=== PATIENT | female | born 1960 | race African-American/Black ===

== ENCOUNTER → 2023-11-06 08:10 | Outpatient (REF) | payer BC, SELFPAY | LOC: RCS 08:10 | PROVIDERS: ATTENDING PHYSICIAN Nurse Practitioner | DX: I10 Essential (primary) hypertension (principal); R06.02 Shortness of breath | CPT/HCPCS: 93017; 93350 ==

== ENCOUNTER → 2024-02-12 14:58 | Outpatient (REF) | payer BC, SELFPAY | LOC: RAD 14:58 | PROVIDERS: ATTENDING PHYSICIAN Nurse Practitioner | DX: M25.571 Pain in right ankle and joints of right foot (principal) | CPT/HCPCS: 73610; 73630 ==

== ENCOUNTER → 2024-08-11 15:29 | Outpatient (REF) | payer BC, SELFPAY | LOC: HWWDC 15:29 | PROVIDERS: ATTENDING PHYSICIAN Nurse Practitioner | DX: Z12.31 Encounter for screening mammogram for malignant neoplasm of breast (principal) | CPT/HCPCS: 77063; 77067 ==

== ENCOUNTER 2025-07-12 15:36 | Emergency (ER) | payer BC, SELFPAY ==
[2025-07-12 15:41] VITALS: BP 191/95
--- NOTE | 2025-07-12 17:09 | ED.GENMED ---
History of Present Illness
General
Chief Complaint: Musculo-Skeletal Complaint
Source: patient
Exam Limitations: none
Time Seen by Provider: 07/12/25 16:31
Nursing documentation reviewed up to this point in time: agreed with
History of Present Illness
History of Present Illness:
Patient is a 65-year-old female with history hypertension who presents to the emergency department w/ left finger injury. She states that she got her finger stuck on a hook when she was hanging her purse up at home. She has significant pain in her
left fourth finger and limited range of motion. She denies any numbness/tingling in affected finger. She took her ring off immediately following injury prior to coming to the emergency department.
No other concerns today.
Past History
Past History
ED Past Medical History: HTN and Hypercholesterolemia
Social History
Tobacco: Non-smoker
Personal:
Living: with family
Review of Systems
Review of Systems
Allergies reviewed?: Yes
All Other Systems: ROS reviewed and negative except as documented in HPI and ROS
Phy Exam
Physical Exam
Physical Exam:
Vitals: Hypertensive, otherwise vital signs stable. Afebrile
General: Patient is well appearing, no acute distress
Skin: Warm and dry, no rashes or lesions
Head: Normocephalic, atraumatic
Neck: Normal ROM, no cervical spine tenderness
Cardiac: Regular rate
Pulm: No apparent respiratory distress
Extremities: Localized tenderness, swelling and ecchymoses of distal left fourth finger with some degree of flexion at DIP. Very limited range of motion in left DIP however range of motion in PIP and MCP appear intact. Normal capillary refill.
Acrylic nail in place.
Neuro: Grossly intact
Psychiatric: Normal affect.
Course
Orders/Labs/Results
Orders:
Orders
07/12/25 15:46
CR Finger(s)/thumb Min 2 Vw Lt Urgent
Comment:
Reason For Exam: injury/pain
Indicate Which Finger:: Ring Finger
07/12/25 17:02
Ibuprofen [Motrin] 600 mg PO NOW STA
Vital Signs
Initial and Last Documented VS:
Initial Vital Signs
Temp Pulse Resp BP Pulse Ox
97.5 F 68 18 191/95 96
07/12/25 15:41 07/12/25 15:41 07/12/25 15:41 07/12/25 15:41 07/12/25 15:41
Last Documented Vital Signs
Temp Pulse Resp BP Pulse Ox
97.5 F 70 14 170/80 100
07/12/25 15:41 07/12/25 17:12 07/12/25 17:12 07/12/25 17:12 07/12/25 17:12
MDM/Problems Addressed
Differential Diagnosis Includes:
Not limited to: Finger fracture, finger dislocation, contusion, tendon injury, etc.
MDM/Problems Addressed:
70-year-old female with left fourth finger injury after getting it stuck on a hook today. No other associated injuries. Vital signs above. On exam there is a focal area of swelling, ecchymosis, and tenderness at distal aspect of left ring finger
with DIP in slight flexion. Affected digit neurovascular intact. Range of motion very limited due to pain.
X-ray reveals fracture of proximal articular margin of distal phalanx with dorsal displacement and rotation of fracture fragment.
I placed patient in an aluminum finger splint with the finger in full extension. Tape was applied for further reinforcement.
Advised ice, rest, NSAIDs, orthopedic follow-up outpatient. Discussed importance of keeping finger in splint as there may be associated tendon injury. Return precautions discussed.
Chronic conditions affecting care:
Hypertension
Acute Exacerbation and/or Progression of Chronic Illness:
Acutely hypertensive
*Radiology
Radiology exam reviewed: radiology read reviewed
*Pulse Oximetry
SaO2: 96
Oxygen Mode of Delivery: Room air
Patient hypoxic: no
*EKG
Interpreted by ED Provider?: NA
*Trashman Interpretation
Rate: Trashman- N/A
*Critical Care Note
Total Time (30-74mins, 75-104mins- exclusive of procedures): Not Applicable
ED Attending Note
-
Portions of this chart may have been created with voice recognition software.� Occasional wrong word or��sound alike� substitutions may have occurred due to the inherent limitations of voice recognition software.
Discharge Plan
Departure
Patient Disposition: Home (Routine Discharge)
Date of Disposition: 07/12/25
Time of Disposition: 17:51
Patient with high blood pressure during this ER visit?: Yes
Condition: Good
Discharge Problem:
Fracture of distal phalanx of left ring finger
Instructions: Finger Fracture ED, BLOOD PRESSURE
Prescriptions:
No Action
cyclobenzaprine 10 MG tablet
10 mg PO TIDPRN PRN (Reason: MUSCLE SPASM/TIGHTNESS) Qty: 20 0RF
hydrocodone-acetaminophen [Vicodin] 1 EACH tablet
1 ea PO Q6HPRN PRN (Reason: pain) Qty: 15 0RF
Referrals:
Balbir Linares MD [Active, Orthopedics] - Next open appointment
Kate Deluna CRNP [Family Provider, Internal Medicine]
Activity Restrictions/Additional Instructions:
RETURN TO THE EMERGENCY DEPARTMENT ANY INTRACTABLE PAIN, NUMBNESS/TINGLING IN AFFECTED DIGIT, SIGNIFICANT SWELLING, WORSENING IN CURRENT SYMPTOMS, OR ANY OTHER CONCERN
-As discussed, your x-ray revealed a fracture of the distal phalanx of your left ring finger.
- Please keep finger at full extension in splint at all times until seen by orthopedics. You can take Tylenol and/or Motrin as needed for pain. Continue to ice your affected finger over the next few days.
- Follow-up with orthopedics for further evaluation/management. The contact information has been provided for you above.
Monitor your symptoms closely and return to the emergency department with any acute worsening/new symptoms or any other concerns
Interventions
Interventions:
*Risk Screen - Suicide Last Done: 07/12/25 15:41
*General Assessment Last Done: 07/12/25 17:53
*Neglect/Abuse Screening Last Done: 07/12/25 15:41
*ED COVID-19 Vaccine History Last Done: 07/12/25 15:41
*ED Influenza Vaccine History Last Done: 07/12/25 15:41
*Nursing Disposition Last Done: 07/12/25 18:04
ED-Musculoskeletal Assessment Last Done: 07/12/25 17:53
Discharge Date and Time
Discharge Date/Time: 07/12/25 18:04
Print Language: [place]
[2025-07-12 17:12] VITALS: BP 170/80
[2025-07-12] MEDS: MOTRIN 600 MG PO (17:12)
== END 2025-07-12 18:04 | disposition home or self-care (01) ==
LOC: EMR 15:36
PROVIDERS: EMERGENCY PHYSICIAN Emergency Medicine; FAMILY PHYSICIAN Nurse Practitioner
DX: S62.635A Displaced fracture of distal phalanx of left ring finger, initial encounter for closed fracture (principal); W49.09XA Other specified item causing external constriction, initial encounter; I10 Essential (primary) hypertension; E78.00 Pure hypercholesterolemia, unspecified
CPT/HCPCS: 99283; 29130; 73140